=== PATIENT | male | born 1990 | race Caucasian/White ===

== ENCOUNTER 2020-06-29 15:08 | Emergency (ER) | payer OTHER ==
[~2020-06-29] VITALS: Ht 177.8 cm; Wt 61.4 kg
[2020-06-29] MEDS ORDERED: MORPHINE SULFATE 4 MG/ML, 1ML IVPush ONE (16:00)
[2020-06-29] MEDS ORDERED: ONDANSETRON 2MG/ML, 2ML IVPush ONE ×2 (16:00→17:30)
[2020-06-29 16:08] LABS: BASOPHILS # (AUTO) 0.03 x10^3/uL (0-0.1); BASOPHILS % (AUTO) 0 % (0-1); EOSINOPHILS # (AUTO) 0.02 x10^3/uL (0-0.4); EOSINOPHILS % (AUTO) 0 % (1-7); HCT (SEDRATE) 46.2 % (39.2-51.8); LYMPHOCYTES # (AUTO) 1.51 x10^3/uL (1-3.4); LYMPHOCYTES % (AUTO) 14 % (22-44); MD NO; MEAN CORPUSCULAR HEMOGLOBIN 32.1 pg (27.5-34.5); MEAN CORPUSCULAR VOLUME 94.5 fL (81-97); MEAN PLATELET VOLUME 9.8 fL (7.4-10.4); MONOCYTES # (AUTO) 0.96 x10^3/uL (0.2-0.8); MONOCYTES % (AUTO) 9 % (2-9); NEUTROPHILS # (AUTO) 8.42 x10^3/uL (1.8-6.8); NEUTROPHILS % (AUTO) 77 % (42-75); PLATELET COUNT 192 x10^3/uL (130-400); RED BLOOD COUNT 4.88 x10^6/uL (4.38-5.82); RED CELL DISTRIBUTION WIDTH 12.6 % (9.4-14.8)
[2020-06-29 16:18] LABS: ANION GAP 5 mmol/L (5-15); CALCIUM 9.8 mg/dL (8.5-10.1); CHLORIDE 107 mmol/L (98-107)
[2020-06-29] MEDS ORDERED: ONDANSETRON 2MG/ML, 2ML ONE (16:47)
[2020-06-29] MEDS ORDERED: MORPHINE SULFATE 4 MG/ML, 1ML ONE (16:47)
[2020-06-29] MEDS ORDERED: ONDANSETRON ODT 4 MG ONE (16:57)
[2020-06-29] MEDS ORDERED: HYDROcodone/APAP 5/325 TABLET ONE (16:57)
[2020-06-29 16:59] VITALS: BP 112/65
[2020-06-29] MEDS ORDERED: ONDANSETRON ODT 4 MG PO ONE (17:30)
[2020-06-29] MEDS ORDERED: HYDROcodone/APAP 5/325 TABLET PO ONE (17:30)
== END 2020-06-29 17:36 | disposition home or self-care (01) ==
LOC: ED 17:15
DX: M71.162 Other infective bursitis, left knee (principal); L03.116 Cellulitis of left lower limb; M79.662 Pain in left lower leg
CPT/HCPCS: 36415; 80048; 85025; 85651; 86140; 99284; Q0162